=== PATIENT | female | born 1970 | race Caucasian/White ===

== ENCOUNTER 2024-04-27 09:51 | Outpatient (CLI) | payer OTHER, SELFPAY ==
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
== END 2024-04-27 09:52 | disposition home or self-care (01) ==
LOC: ANHNEURO 09:57
PROVIDERS: Visit Provider Pediatrics
DX: M79.603 Pain in arm, unspecified (principal); M79.673 Pain in unspecified foot
CPT/HCPCS: 95886; 95913